=== PATIENT | male | born 1980 | race Caucasian/White ===

== ENCOUNTER 2018-12-17 11:06 | Emergency (ER) | payer OTHER ==
[~2018-12-17] VITALS: Ht 167.6 cm; Wt 74.8 kg
[2018-12-19] MEDS ORDERED: TORADOL60 MG (02:35)
[2018-12-19] MEDS ORDERED: TAMS0.4C (02:35)
[2018-12-19] MEDS ORDERED: ZOFRAN4 MG (02:36)
[2018-12-19] MEDS ORDERED: PERCOCET 5-3251 EACH PO (05:44)
== END 2018-12-18 10:51 | disposition home or self-care (01) ==
LOC: ER 11:06
DX: N20.0 Calculus of kidney (principal); R10.31 Right lower quadrant pain

== ENCOUNTER 2018-12-19 02:27 | Emergency (ER) | payer OTHER ==
[~2018-12-19] VITALS: Ht 167.6 cm; Wt 74.8 kg
[2018-12-19] MEDS ORDERED: TAMS0.4C (02:35)
[2018-12-19] MEDS ORDERED: TORADOL60 MG (02:35)
[2018-12-19] MEDS ORDERED: ZOFRAN4 MG (02:36)
[2018-12-19] MEDS ORDERED: PERCOCET 5-3251 EACH PO (05:44)
== END 2018-12-19 07:16 | disposition home or self-care (01) ==
LOC: ER 02:27
DX: N20.1 Calculus of ureter (principal)

== ENCOUNTER 2018-12-26 00:08 | Emergency (ER) | payer OTHER ==
[~2018-12-26] VITALS: Ht 167.6 cm; Wt 74.8 kg
[~2018-12-26 00:08] MED LIST: PERCOCET 5-3251 EACH PO; TAMS0.4C; TORADOL60 MG; ZOFRAN4 MG
[2018-12-26] MEDS ORDERED: PERCOCET 5-3251 EACH PO (06:04)
[2018-12-26] MEDS ORDERED: KETO10TA2 PO (06:04)
[2018-12-26] MEDS ORDERED: TAMS0.4C PO (06:04)
== END 2018-12-26 06:42 | disposition home or self-care (01) ==
LOC: ER 00:08
DX: N20.0 Calculus of kidney (principal); N13.30 Unspecified hydronephrosis; R10.31 Right lower quadrant pain

== ENCOUNTER → 2019-01-10 | Outpatient (CLI) | payer OTHER ==
[~2019-01-10] MED LIST changes: +KETO10TA2 PO; +TAMS0.4C PO
== END | disposition home or self-care (01) ==
LOC: SONOGRAMA 08:54 → MAMO-SONO 09:15
DX: N20.1 Calculus of ureter (principal)

== ENCOUNTER 2019-01-31 08:43 | Outpatient (CLI) | payer OTHER | END 2019-01-31 09:02 | disposition home or self-care (01) | LOC: TOM 08:43 | DX: N40.0 Benign prostatic hyperplasia without lower urinary tract symptoms (principal); N20.0 Calculus of kidney ==

== ENCOUNTER 2019-04-27 07:15 | Outpatient (CLI) | payer OTHER | END 2019-04-27 08:31 | disposition home or self-care (01) | LOC: TOM 07:15 | DX: N40.0 Benign prostatic hyperplasia without lower urinary tract symptoms (principal); R31.1 Benign essential microscopic hematuria ==

== ENCOUNTER 2019-12-30 07:43 | Outpatient (CLI) | payer OTHER | END 2019-12-30 07:51 | disposition home or self-care (01) | LOC: RAD 07:43 | PROVIDERS: ATTEND Urology | DX: N20.0 Calculus of kidney (principal); R31.1 Benign essential microscopic hematuria; N40.0 Benign prostatic hyperplasia without lower urinary tract symptoms ==

== ENCOUNTER 2025-01-20 07:33 | Outpatient (CLI) | payer OTHER | END 2025-01-20 07:38 | disposition home or self-care (01) | LOC: RAD 07:33 | PROVIDERS: ATTEND Urology | DX: N20.0 Calculus of kidney (principal); R31.1 Benign essential microscopic hematuria; R33.9 Retention of urine, unspecified ==